=== PATIENT | male | born 1990 | race Caucasian/White ===

== ENCOUNTER 2022-05-20 18:10 | Emergency (ER) | payer SELFPAY ==
[2022-05-20 18:30] VITALS: BP 130/83; PULSE 91; RESP 18; TEMP 36.8; O2SAT 96; BMI 22.8
--- NOTE | 2022-05-20 18:44 | EXP.UTC ---
Discharge Plan Disposition Patient Disposition: Home, Self-Care Condition: Good Prescriptions Prescriptions: New azithromycin [Zithromax Z-Rick] 250 mg tablet See Rx Instructions .ROUTE .COMPLEX 5 Days Qty: 6 0RF Rx Instructions: For 250 mg dose pack: take 500 mg today (day 1), then 250 mg for 4 days (days 2-5) methylprednisolone [Medrol (Rick)] 4 mg tablets,dose pack See Rx Instructions .Route .COMPLEX 6 Days Qty: 21 0RF Rx Instructions: taper pack; Referrals Follow up/Referrals: Provider,Referral, MD [Primary Care Provider] - See instructions Activity Restrictions/Add. Instructions Additional Instructions/Restrictions: *Monitor Temp, Over the counter Motrin or Tylenol as directed/as needed Tylenol every 4 hours and Motrin every 6 hours (as long as your family doctor has told you that you can take it) for fever or pain. and straight to ER if unable to lower temp less than 101.0 after medication given *Warm salt water gargles may help to soothe the throat *Throat Lozenges? *Warm fluids like tea with honey may help to soothe the throat? *Sleep elevated *Humidifier/Vaporizer Your throat swab was sent for culture. Those results are typically sent to your primary care. Be sure to follow up in 2-3 days with your family doctor/primary care physician if no improvement so they can review those result and treat if necessary. If you don?t have a primary care doctor, I recommend you get one but in the mean time, you will have to return to a walk in clinic Follow up IMMEDIATELY for new or worsening symptoms or no Noticeable improvement over the next 48-72 hours. 911 for difficulty breathing or swallowing You were tested for today for COVID19 your test result should be back in the next 24-48 hours, you may check your results on the [facility] my Health Portal Make sure to take your Vitamins Vit. C Vit D and Zinc if you can take them Clinical Impressions Clinical Impression: URI (upper respiratory infection) Stand Alone Forms Stand Alone Forms: Work/School Release Instructions Patient Instructions: Sore Throat, DI for Fever (Symptom) -- Adult Discharge ED Provider: Tracey Vidales [facility] HPI General Stated complaint: exposed covid, SOA body runny nose sore throat Mode of Arrival: Ambulatory Source of Information: Patient Limitations: No Limitations Time Seen by Provider: 05/20/22 18:44 Description of Symptoms (Recalled from Triage Doc. by RN): PATIENT C/O SORE THROAT, BODY ACHES, AND TROUBLE BREATHING X 3 DAYS. RECENTLY EXPOSED TO COVID HEENT Symptoms (Recalled from RN notes): Yes Resp Symptoms (Recalled from RN notes): Yes Skin Symptoms (Recalled from RN notes): No MS Symptoms (Recalled from RN notes): No Functional Status (Recalled from RN notes): WNL History of Present Illness Provider Complaint: Patient states that he was recently around someone that was positive for COVID states that he has been having sinus congestion, body ache, chills, sore throat and cough States he cant breath out of his nose and makes him feel SOA at times States today he was feeling worse so he came in to get checked Related Data Previous Rx's Medication Instructions Recorded azithromycin 250 mg tablet See Rx Instructions PO .COMPLEX 5 05/20/22 (Zithromax Z-Rick) days #6 tabs methylprednisolone 4 mg tablets in See Rx Instructions .Route 05/20/22 a dose pack (Medrol (Rick)) .COMPLEX 6 days #21 tabs Allergies Allergy/AdvReac Type Severity Reaction Status Date / Time No Known Allergies Allergy Verified 05/20/22 18:41 Worker's Comp Is this a Worker's Comp case?: No [facility] 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 (Updated 05/20/22 @ 19:04 by Tracey Vidales APRN) No significant past medical history Social History (Updated 05/20/22 @ 18:41 by Rosalia Del Rosario RN) Smoking Status: Unknown if ever smoked alcohol intake: never current occupational status: other Travel in the last 8 weeks: None ROS O
[2022-05-20 19:02] LABS: UTC Strep Screen (Rapid) Negative (Negative)
[2022-05-20 19:07] VITALS: BP 130/83; PULSE 91; RESP 18; TEMP 36.8; O2SAT 96
== END 2022-05-20 19:43 | disposition home or self-care (01) ==
PROVIDERS: Emergency Provider Nurse Practitioner
DX: J06.9 Acute upper respiratory infection, unspecified (principal)
CPT/HCPCS: 87880; 99212; C9803; G0463; U0003; U0005

== ENCOUNTER 2022-05-28 08:41 | Emergency (ER) | payer SELFPAY ==
[2022-05-28 09:16] VITALS: BP 113/74; PULSE 74; RESP 18; TEMP 36.8; O2SAT 98; BMI 20.7
--- NOTE | 2022-05-28 09:40 | EXP.UTC ---
Discharge Plan Disposition Patient Disposition: Home, Self-Care Condition: Good Prescriptions Prescriptions: No Action azithromycin [Zithromax Z-Rick] 250 mg tablet See Rx Instructions .ROUTE .COMPLEX 5 Days Qty: 6 0RF Rx Instructions: For 250 mg dose pack: take 500 mg today (day 1), then 250 mg for 4 days (days 2-5) methylprednisolone [Medrol (Rick)] 4 mg tablets,dose pack See Rx Instructions .Route .COMPLEX 6 Days Qty: 21 0RF Rx Instructions: taper pack; Referrals Follow up/Referrals: Provider,Referral, MD [Primary Care Provider] - See instructions Activity Restrictions/Add. Instructions Additional Instructions/Restrictions: Drink extra fluids with and between meals. If you have difficulty drinking, try very small amounts of water or suck on ice chips. ? Avoid fruit juices, as these do not replace minerals and can actually increase diarrhea. ? Children and adults can use sports drinks to replenish electrolytes. Younger children and infants should use products formulated for children, like oral rehydration solutions. ? Eat food in small amounts and let your stomach recover. ? Get lots of rest. You may feel tired or weak. ? No greasy or fried foods for the next 24-48 hours BRAT diet Bananas Rice Apples and [place] ? Make sure to drink plenty of liquids ? Return if needed ? Straight to ER if any life threatening symptoms ? You was given an outpatient order for diarrhea panel, please collect specimen and bring back to outpatient lab then call back to the [facility] or follow up with family doctor for results ? Follow up with family doctor in the next 48-72 hours if no improvement or any worsening of symptoms Clinical Impressions Clinical Impression: Diarrhea Stand Alone Forms Stand Alone Forms: Work/School Release Instructions Patient Instructions: Diarrhea Discharge ED Provider: Tracey Vidales [facility] [place] General Stated complaint: diarrhea for 2 weeks Mode of Arrival: Ambulatory Source of Information: Patient Limitations: No Limitations Time Seen by Provider: 05/28/22 09:40 Description of Symptoms (Recalled from Triage Doc. by RN): Pt c/o diarrhea x2 weeks HEENT Symptoms (Recalled from RN notes): No Resp Symptoms (Recalled from RN notes): No Skin Symptoms (Recalled from RN notes): No MS Symptoms (Recalled from RN notes): No Functional Status (Recalled from RN notes): n/a History of Present Illness Provider Complaint: Patient states that he has having diarrhea on and off for a couple of weeks States that his stomach has been upset a little and worse when he is at work Denies pain denies N/V Related Data Previous Rx's Medication Instructions Recorded azithromycin 250 mg tablet See Rx Instructions PO .COMPLEX 5 05/20/22 (Zithromax Z-Rick) days #6 tabs methylprednisolone 4 mg tablets in See Rx Instructions .Route 05/20/22 a dose pack (Medrol (Rick)) .COMPLEX 6 days #21 tabs Allergies Allergy/AdvReac Type Severity Reaction Status Date / Time No Known Allergies Allergy Verified 05/20/22 18:41 Worker's Comp Is this a Worker's Comp case?: No [facility] 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 (Updated 05/28/22 @ 09:49 by Tracey Vidales APRN) No significant past medical history Social History (Updated 05/20/22 @ 19:05 by Tracey Vidales APRN) Smoking Status: Unknown if ever smoked alcohol intake: never current occupational status: other Travel in the last 8 weeks: None ROS Obtained: Yes All systems reviewed & no additional complaints except as documented and Yes Systems reviewed as appropriate & no additional complaints except as documented Constitutional Constitutional: Reports system reviewed and no additional complaints, except as documented and Reports as per HPI Eyes Eyes: Reports system reviewed and no additional complaints, except as documented and Reports as per HPI ENT Ears, Nose, Mouth, and Throat: Reports system r
[2022-05-28 09:53] VITALS: BP 113/74; PULSE 74; RESP 18; TEMP 36.8; O2SAT 98
[2022-05-28 10:39] VITALS: BP 113/74; PULSE 74; RESP 18; TEMP 36.8; O2SAT 98
== END 2022-05-28 10:40 | disposition home or self-care (01) ==
PROVIDERS: Emergency Provider Nurse Practitioner
DX: R19.7 Diarrhea, unspecified (principal)
CPT/HCPCS: 99212; G0463

== ENCOUNTER → 2022-05-28 12:17 | Outpatient (CLI) | payer SELFPAY ==
[2022-05-28 12:26] LABS: Adenovirus F 40/41, stool Not Detected (NotDetected); Astrovirus Not Detected (NotDetected); Campylobacter Not Detected (NotDetected); Clostridium Difficile A/B, PCR Not Detected (NotDetected); Cryptosporidium Not Detected (NotDetected); Cyclospora Cayetanesis Not Detected (NotDetected); Entamoeba histolytica Not Detected (NotDetected); Enteroaggregative E coli Not Detected (NotDetected); Enteropathogenic E coli Not Detected (NotDetected); Enterotoxigenic E coli Not Detected (NotDetected); Giardia lamblia Not Detected (NotDetected); Norovirus Not Detected (NotDetected); Plesimonas Shigalloides, PCR Not Detected (NotDetected); Rotavirus A Not Detected (NotDetected); Salmonella, PCR Not Detected (NotDetected); Sapovirus Not Detected (NotDetected); Shiga-like toxin E coli Not Detected (NotDetected); Shigella Enterovasive E coli Not Detected (NotDetected); Vibrio Cholerae Not Detected (NotDetected); Vibrio, PCR Not Detected (NotDetected); Yersinia Entercolitica, PCR Not Detected (NotDetected)
== END ==
LOC: LAB.DROPOF 12:19 → LAB 12:21
PROVIDERS: Visit Provider Nurse Practitioner
DX: R19.7 Diarrhea, unspecified (principal)
CPT/HCPCS: 87507

== ENCOUNTER → 2022-05-31 14:53 | Outpatient (CLI) | payer SELFPAY | LOC: LAB.DROPOF 14:54 | PROVIDERS: PCP Nurse Practitioner Family; Visit Provider Nurse Practitioner Family | DX: Z00.00 Encounter for general adult medical examination without abnormal findings (principal); R19.7 Diarrhea, unspecified | CPT/HCPCS: 87177 ==

== ENCOUNTER 2022-11-13 12:42 | Emergency (ER) | payer MEDICAID, SELFPAY ==
[2022-11-13 12:45] VITALS: BP 131/57; PULSE 89; RESP 19; TEMP 36.8; O2SAT 97; BMI 21.4
--- NOTE | 2022-11-13 13:18 | EXP.UTC ---
Discharge Plan Disposition Patient Disposition: Home, Self-Care Condition: Good Prescriptions Prescriptions: New prednisone [prednisone] 20 mg tablet 20 mg PO BID Qty: 10 0RF Referrals Follow up/Referrals: Provider,Referral, MD [Primary Care Provider] - See instructions Activity Restrictions/Add. Instructions Additional Instructions/Restrictions: Weightbearing as tolerated rest Ice with cold pack for 20 minutes remove may repeat for comfort every hour Wilder wrap for support and swelling no less in the shower. Be sure not too tight but not to lose either Elevate with legs above your heart as much as possible to help reduce swelling and therefore pain Ibuprofen every 6 hours as needed for pain or inflammation. If needs something more you can take Tylenol every 4 hours as needed as long as her primary care has told he was okayed for you to take both. If improving any do not need to follow-up you can bring begin exercising 2-3 weeks after injury. Follow-up immediately if new or worsening symptoms or no noticeable improvement over the next 3-5 days. call ortho if no improvement Clinical Impressions Clinical Impression: Acute knee pain Instructions Patient Instructions: DI for Knee Pain Discharge ED Provider: Zandra ([facility])Matilde [facility] [place] General Stated complaint: pain in both knees, no accident Mode of Arrival: Ambulatory Source of Information: Patient Limitations: No Limitations Time Seen by Provider: 11/13/22 13:19 Description of Symptoms (Recalled from Triage Doc. 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 NO KNOWN INJURY HEENT Symptoms (Recalled from RN notes): No Resp Symptoms (Recalled from RN notes): No Skin Symptoms (Recalled from RN notes): No MS Symptoms (Recalled from RN notes): Yes Functional Status (Recalled from RN notes): WNL History of Present Illness Provider Complaint: 31 yr old male presents for marcel knee pain. pt states he was pushing carts at work yesterday when both his knees started hurting. pt states he has had this before in his rt knee. Related Data Previous Rx's Medication Instructions Recorded prednisone 20 mg tablet 20 mg PO BID #10 tabs 11/13/22 Allergies Allergy/AdvReac Type Severity Reaction Status Date / Time No Known Allergies Allergy Verified 05/20/22 18:41 Worker's Comp Is this a Worker's Comp case?: No [facility] Disclaimer: The information contained in this section may have been updated after the patient was seen, as this information can be updated by other users. 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) Smoking Status: Unknown if ever smoked alcohol intake: never current occupational status: other Travel in the last 8 weeks: None ROS Obtained: Yes All systems reviewed & no additional complaints except as documented Constitutional Constitutional: Reports system reviewed and no additional complaints, except as documented and Reports as per HPI Eyes Eyes: Reports system reviewed and no additional complaints, except as documented ENT Ears, Nose, Mouth, and Throat: Reports system reviewed and no additional complaints, except as documented Cardiovascular Cardiovascular: Reports system reviewed and no additional complaints, except as documented Respiratory Respiratory: Reports system reviewed and no additional complaints, except as documented Musculoskeletal Musculoskeletal: Reports system reviewed and no additional complaints, except as documented, Reports as per HPI, Reports arthralgias and Reports limited range of motion Integumentary/Breasts Skin/Breast: Reports system reviewed and no additional complaints, except as documented Neurologic Neurologic: Reports system reviewed and no additional complaints, except as documented Endocrine Endocrine: Reports
[2022-11-13 13:26] VITALS: BP 131/57; PULSE 89; RESP 19; TEMP 36.8; O2SAT 97
== END 2022-11-13 13:30 | disposition home or self-care (01) ==
PROVIDERS: Emergency Provider Nurse Practitioner Family
DX: M25.561 Pain in right knee (principal); M25.562 Pain in left knee
CPT/HCPCS: 99212; 99213; G0463

== ENCOUNTER 2022-11-14 09:15 | Emergency (ER) | payer MEDICAID, SELFPAY ==
[2022-11-14 09:21] VITALS: BP 163/82; PULSE 90; RESP 16; O2SAT 98
[2022-11-14 09:24] VITALS: BP 163/82; PULSE 80; RESP 20; TEMP 36.8; O2SAT 99; BMI 23.3
--- NOTE | 2022-11-14 09:46 | HMH.EDGENADL ---
Discharge Plan Disposition Patient Disposition: Home, Self-Care Condition: Good Prescriptions Prescriptions: No Action prednisone [prednisone] 20 mg tablet 20 mg PO BID Referrals Follow up/Referrals: Provider,Referral, MD [Primary Care Provider] - See instructions Activity Restrictions/Add. Instructions Additional Instructions/Restrictions: Continue prednisone as prescribed. Tylenol 3 as needed for pain. Follow-up with orthopedics, Dr. Fernandez, call for appointment. Off work today and tomorrow. Clinical Impressions Clinical Impression: Tendinitis of both knees Stand Alone Forms Stand Alone Forms: Work/School Release Instructions Patient Instructions: DI for Tendinitis, DI for Knee Pain Discharge ED Provider: Syed Amador General Adult HPI General Chief complaint: PAIN Stated complaint: Knee pain no accident Time Seen by Provider: 11/14/22 09:38 Mode of Arrival: Ambulatory Source of Information: Patient Limitations: No Limitations Description of Symptoms (Recalled from ER Triage Doc. by RN): pt to ed c/o bilateral knee pain that started gradually this week. pt states he was pushing carts at [employer] and the pain in his knees was a gradual onset. pt states he was seen in [facility] yesterday and was given steroids and reports he has not had any relief. History of Present Illness HPI narrative: 4-day history of bilateral knee pain. 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 No falls, no twisting of the knee. His pain worsens with pushing carts and going up steps. No fever. No swelling. No other sore joints. No history of arthritis. No other systemic illness such as URI, vomiting, diarrhea, urinary symptoms. He was seen at the urgent [facility] center yesterday and was given a prescription for prednisone. He has had 1 dose. He says that he is mildly improved today, but was unable to sleep last night and is supposed to work today and tomorrow. Related Data Home Medications Medication Instructions Recorded Confirmed prednisone 20 mg tablet 20 mg PO BID knee pain 11/14/22 11/14/22 Allergies Allergy/AdvReac Type Severity Reaction Status Date / Time No Known Allergies Allergy Verified 05/20/22 18:41 [facility] Disclaimer: The information contained in this section may have been updated after the patient was seen, as this information can be updated by other users. 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) Smoking Status: Never smoker alcohol intake: never current occupational status: other Travel in the last 8 weeks: None ROS Obtained: Yes Systems reviewed as appropriate & no additional complaints except as documented Constitutional Constitutional: Denies fever(s) and Denies weakness ENT Ears, Nose, Mouth, and Throat: Denies nasal discharge and Denies sore throat Cardiovascular Cardiovascular: Denies chest pain Respiratory Respiratory: Denies shortness of breath and Denies cough Gastrointestinal Gastrointestingal: Denies abdominal pain, diarrhea or vomiting Genitourinary Male Genitourinary: Denies difficulty urinating Musculoskeletal Musculoskeletal: Reports as per HPI, Reports arthralgias (Bilateral knees) and Denies numbness Integumentary/Breasts Skin/Breast: Reports other (Notes a few small punctate scabs on the lateral aspect of his right lower l) Neurologic Neurologic: Denies numbness and Denies weakness Physical Exam General General appearance: alert and in no apparent distress Chest Chest inspection: Present normal inspection and symmetric chest wall rise Respiratory Respiratory exam: Present normal lung sounds bilaterally; Absent respiratory distress Cardiovascular Cardiovascular exam: Pr
[2022-11-14 10:14] VITALS: BP 121/68; PULSE 88; RESP 20; TEMP 36.8; O2SAT 98
== END 2022-11-14 10:14 | disposition home or self-care (01) ==
PROVIDERS: Emergency Provider Emergency Medicine
DX: M76.51 Patellar tendinitis, right knee (principal); M76.52 Patellar tendinitis, left knee
CPT/HCPCS: 96372; 99283; 99284

== ENCOUNTER → 2022-11-17 11:52 | Outpatient (CLI) | payer MEDICAID, SELFPAY ==
--- NOTE | 2022-11-17 11:57 | XR_ITS ---
FINAL REPORT CLINICAL HISTORY: knee pain, weakness, no injury, no prior knee sx FINDINGS: RIGHT KNEE Three views of the right knee reveal no evidence of fracture or dislocation. The bony alignment is normal. The joint spaces are preserved. There is no evidence of joint effusion. No localized soft tissue abnormality is identified. IMPRESSION: No acute abnormality identified. Reviewed, Interpreted and Dictated by Paresh Miles III, MD Transcribed by Jovita Livingston Authenticated and . [facility]
--- NOTE | 2022-11-17 11:57 | XR_ITS ---
FINAL REPORT CLINICAL HISTORY: knee pain, weakness, no injury, no sx FINDINGS: LEFT KNEE Three views of the left knee reveal no evidence of fracture or dislocation. The bony alignment is normal. The joint spaces are preserved. There is no evidence of joint effusion. No localized soft tissue abnormality is seen. IMPRESSION: No acute abnormality identified. Reviewed, Interpreted and Dictated by Paresh Miles III, MD Transcribed by Jovita Livingston Authenticated and [facility]
== END ==
PROVIDERS: Visit Provider Physician Assistant Surgical
DX: M25.561 Pain in right knee (principal); M25.562 Pain in left knee
CPT/HCPCS: 73562

== ENCOUNTER 2022-11-21 14:09 | Emergency (ER) | payer MEDICAID, SELFPAY ==
[2022-11-21 14:09] VITALS: BP 127/74; PULSE 81; RESP 17; TEMP 36.8; O2SAT 97; BMI 24.1
--- NOTE | 2022-11-21 14:37 | PC.NURSE ---
JODI MALONE at
--- NOTE | 2022-11-21 14:40 | HMH.EDGENADL ---
Discharge Plan Disposition Patient Disposition: Home, Self-Care Condition: Good Prescriptions Prescriptions: New prednisone 20 mg tablet 40 mg PO BID 5 Days Qty: 20 0RF No Action prednisone [prednisone] 20 mg tablet 20 mg PO BID Referrals Follow up/Referrals: Provider,MD Danae [Primary Care Provider] - See instructions Sadi Kellogg MD [Staff Physician] - See instructions Activity Restrictions/Add. Instructions Additional Instructions/Restrictions: Take 40 mg prednisone daily for the next 5 days. Follow-up with physical therapy as you have scheduled already. Referral to family doctor has been placed, follow-up with them within 2 weeks to establish care and ensure improvement in symptoms to further manage knee pain. If you have any other concerning symptoms, return to your primary care provider or the emergency department for further evaluation. Take Tylenol 1000 mg every 6 hours (4 times daily) and ibuprofen 400 mg every 6 hours (4 times daily) as needed with food and water to prevent GI upset and kidney damage. Clinical Impressions Clinical Impression: Acute pain of left knee, Patellofemoral arthritis of left knee Discharge ED Provider: Tip Moses General Adult HPI General Chief complaint: PAIN Stated complaint: left knee pain, no known accident Time Seen by Provider: 11/21/22 14:12 Mode of Arrival: Ambulatory Source of Information: Patient Limitations: No Limitations Description of Symptoms (Recalled from ER Triage Doc. by RN): 31 M presents with bilateral knee pain that began last week. He was seen here and given a steroid shot with PO medications without any relief. This morning he woke up and they're both hurting; however, the left knee is throbbing. ROM intact. History of Present Illness HPI narrative: This is a 31-year-old male with no relevant medical history presenting with knee pain. Patient states that he was recently told he had arthritis in both of his knees, this was less than 1 week prior to arrival when he had x-rays done at [facility]. Since that time, he has been taking Tylenol on and off for pain, but has had progressively worsening pain especially when rising from seated position, or going up stairs, so came to the ED for further evaluation. Denies fevers, chills, red/hot swollen joints, pain in any other joints, history of autoimmune diseases, nausea, inability to bear weight, or any other concerns. Related Data Home Medications Medication Instructions Recorded Confirmed prednisone 20 mg tablet 20 mg PO BID knee pain 11/14/22 11/19/22 Previous Rx's Medication Instructions Recorded prednisone 20 mg tablet 40 mg PO BID 5 days #20 tabs 11/21/22 Allergies Allergy/AdvReac Type Severity Reaction Status Date / Time No Known Allergies Allergy Verified 11/19/22 09:58 [facility] Disclaimer: The information contained in this section may have been updated after the patient was seen, as this information can be updated by other users. 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 No significant past medical history Social History Smoking Status: Never smoker alcohol intake: never current occupational status: other Travel in the last 8 weeks: None ROS Obtained: Yes All systems reviewed & no additional complaints except as documented Physical Exam General General appearance: alert and in no apparent distress Head Head exam: atraumatic, normocephalic and normal inspection Eye Eye exam: Present normal appearance, PERRL and EOMI ENT ENT exam: Present normal exam, normal oropharynx, mucous membranes moist, TM's normal bilaterally and normal external ear exam Neck Neck exam: Present normal inspection, full ROM and trachea midline; Absent meningismus or lymphadenopathy Chest Chest inspection: Present normal inspection and symmetric chest wall rise; Absent tende
[2022-11-21 14:47] VITALS: BP 125/74; PULSE 79; RESP 17; TEMP 36.8; O2SAT 97
== END 2022-11-21 14:48 | disposition home or self-care (01) ==
PROVIDERS: Emergency Provider Emergency Medicine
DX: M25.562 Pain in left knee (principal); M22.2X2 Patellofemoral disorders, left knee
CPT/HCPCS: 99283; 99284

== ENCOUNTER → 2022-11-24 23:24 | Outpatient (CLI) | payer MEDICAID, SELFPAY ==
[2022-11-24 17:35] LABS: Basophils # 0.1 K/mm3 (0-0.2); Basophils % 0.6 % (0.1-2.0); Eosinophils # 0.1 K/mm3 (0.0-0.4); Eosinophils % 1.2 % (0.1-12.0); Hematocrit 47.8 % (42.0-52.0); Hemoglobin 14.8 g/dL (14.1-18.0); Lymphocytes # 2.5 K/mm3 (0.7-4.5); Lymphocytes % 28.2 % (10-50); Mean Corpuscular Hemoglobin 29.7 pg (27.0-31.2); Mean Corpuscular Volume 95.5 fl (80-94); Monocytes # 0.6 K/mm3 (0.1-1.0); Monocytes % 6.9 % (1.7-9.3); Neutrophils # 5.7 K/mm3 (1.8-7.8); Neutrophils % 63.1 % (37.0-80.0); Platelet Count 461 K/mm3 (142-424); Red Cell Distribution Width 14.1 % (11.5-17.5)
[2022-11-24 17:39] LABS: Alanine Aminotransferase 31 U/L (12-78); Albumin Level 4.9 g/dl (3.5-5.0); Alkaline Phosphatase 66 U/L (38-126); Anion Gap 16.4 mEq/L (5-15); Aspartate Amino Transferase 28 U/L (17-59); Bilirubin,Total 0.3 mg/dl (0.2-1.3); Blood Urea Nitrogen 14 mg/dl (9-20); Calcium 9.1 mg/dl (8.4-10.2); Carbon Dioxide 26 mmol/L (22.0-30.0); Chloride 100 mmol/L (98-107); Chol/HDL Ratio 7.6 (1-3.5); Cholesterol 265 mg/dl (140-200); Estimated Glomerular Filt Rate 99 ml/min (>60); GFR (African American) 120 ML/MIN (>60); Globulin 2.5 g/dL (1.3-3.2); Glucose 76 mg/dl (74-100); HDL Cholesterol 35 mg/dl (40-60); Potassium 4.4 mmoL/L (3.5-5.1); Sodium 138 mmol/L (136-145); Total Protein,Serum 7.4 g/dl (6.3-8.2); Triglycerides 396 mg/dl (30-150); VLDL Cholesterol 79 mg/dL (0-40)
[2022-11-24 17:50] LABS: Direct LDL Cholesterol 153.34 mg/dL (100-129)
[2022-11-24 18:10] LABS: Thyroid Stimulating Hormone 2.69 uIU/mL (0.465-4.68)
== END ==
PROVIDERS: PCP Nurse Practitioner Family; Visit Provider Nurse Practitioner Family
DX: M25.562 Pain in left knee (principal); M25.561 Pain in right knee; Z13.220 Encounter for screening for lipoid disorders; Z13.29 Encounter for screening for other suspected endocrine disorder
CPT/HCPCS: 80053; 80061; 84443; 85025

== ENCOUNTER 2022-12-09 08:30 | Outpatient (RCR) | payer MEDICAID, SELFPAY ==
--- NOTE | 2022-11-23 16:10 | HMH.PTOPEV ---
PT Outpatient Evaluation Rehab PT Outpatient Evaluation Start: 11/23/22 15:00 Freq: Status: Active Protocol: Document 11/23/22 15:45 PHOALIN (Rec: 11/23/22 16:10 PHORRULA [id number]) E-signed By Sonu Gibbs, PT Outpatient Therapy Subjective History Subjective History This is the initial PT eval for Lino Burt 31 yowm who presents with c/o pain in B lateral knees x ~ 2 mos with insidious onset of symptoms, L > R. He reports intermittent numbness in the R lower leg without a certain cause. He c/ o pain being worse with stairs and twisting on his L knee. He reports pain is aching at rest and sharp with activity. He reports no significant PMH. Chief Complaint Pain Symptom Type Ache,Throb,Sharp Symptoms Relieved By Heat Symptoms Aggravated By Standing,Twisting,Lifting Prior Functional Limitations None Current Functional Limitations Lifting,Squatting,Recreation Activity,Walking,Stairs, Bending/Stooping Symptom Description Constant but Variable Level of pain today (0-10) 8 Pain scale - at its worst (0-10) 10 Hip/Knee Eval Gait Observation General Gait Pattern Observation Antalgic Gait Palpation Tenderness bilateral Knee Palpation Finding Tenderness Knee Palpation Overall Comment 2/4 lateral knee/distal ITB MMT Hip Flexion Strength Grade 5 Normal Hip Abduction Strength Grade 5 Normal Hip Adduction Strength Grade 5 Normal Hip Extension Strength Grade 5 Normal Gluteus Ge Strength Grade 5 Normal Hip External Rotation Strength Grade 5 Normal Hip Internal Rotation Strength Grade 5 Normal Knee Extension Strength Grade 5 Normal Knee Flexion Strength Grade 5 Normal ROM Knee Extension Active Range of Motion ( 0 degrees) Knee Flexion Active Range of Motion ( 0-130 degrees) Special Tests Hip Piriformis Test Negative Left,Negative Right Sciatic Nerve Tension Test Negative Left,Negative Right Hip Scouring ([place]) Test Negative Left,Negative Right Knee Anterior Anselmo Test Negative Left,Negative Right Knee Posterior Sag ([place]) Test Negative Left,Negative Right Knee Valgus Stress Test Negative Left,Negative Right Knee Varus Stress Test Negative Left,Negative Right Knee Bernardo Test Negative Left,Negative Right Outpatient Therapy Assessment Impairments Problems/Impairmments
== END 2022-12-09 08:35 | disposition home or self-care (01) ==
LOC: PT 08:30
PROVIDERS: PCP Orthopaedic Surgery; Visit Provider Orthopaedic Surgery
DX: M25.561 Pain in right knee (principal); M25.562 Pain in left knee; M25.551 Pain in right hip; M25.552 Pain in left hip
CPT/HCPCS: 97010; 97014; 97110; 97140; 97163; 97530; G0283